=== PATIENT | male | born 1990 | race Caucasian/White ===

== ENCOUNTER 2021-10-29 16:40 | Observation (INO) ==
[2021-10-30] MEDS ORDERED: Naloxone 0.4 MG/ML INJ IVP PRN (01:42)
[2021-10-30] MEDS ORDERED: Acetaminophen 325 MG TABLET PO PRN (01:42)
[2021-10-30] MEDS ORDERED: Ondansetron 4 MG/2 ML VIAL IVP PRN (01:42)
[2021-10-30 05:09] LABS: Hematocrit 41.8 % (37.5-50.1); Hemoglobin 14.2 g/dL (12.9-16.9); Mean Corpuscular Hemoglobin 29.4 pg (28.0-33.3); Mean Corpuscular Volume 86.5 fL (83.0-100.0); Mean Platelet Volume 10.3 fL (9.4-12.4); Platelet Count 285 K/mcL (140-400); Red Blood Count 4.83 M/mcL (4.19-5.50); Red Cell Distribution Width 12.3 % (11.5-14.5); White Blood Count 9.8 K/mcL (4.3-11.1)
[2021-10-30 05:20] LABS: INR 1.2; Prothrombin Time 13.5 Seconds (9.4-12.1)
[2021-10-30 05:23] LABS: Activated Partial Thrombo Time 36.9 Seconds (26.0-36.0)
[2021-10-30 05:39] LABS: Estimated Average Glucose 100 mg/dl; Hemoglobin A1C 5.1 %
[2021-10-30 09:16] LABS: BUN/Creatinine Ratio 12 (6-26); Blood Urea Nitrogen 10 mg/dL (6-20); Calcium 8.1 mg/dL (8.6-10.3); Carbon Dioxide 24 mEq/L (23-29); Chloride 108 mEq/L (98-107); Chol/HDL Ratio 5.2 (0-4.9); Cholesterol 178 mg/dL (< 200); Glucose 99 mg/dL (70-105); HDL Cholesterol 34 mg/dL (40-59); LDL Cholesterol,Calculated 127 mg/dL (< 100); Magnesium 1.9 mg/dL (1.6-2.6); Osmolality,Calculated 285 (280-300); Potassium 3.5 mEq/L (3.5-5.1); Sodium 138 mEq/L (136-145); Triglycerides 86 mg/dL (< 150); Troponin I < 0.03 ng/mL (< 0.04); eGFR For African Americans > 60 (> 60); eGFR For Non-African Americans > 60 (> 60)
[2021-10-30 12:25] VITALS: TEMP 97.9
[2021-10-30 16:16] VITALS: BP 125/76; PULSE 87; O2SAT 95
== END 2021-10-30 17:02 | disposition home or self-care (01) ==
LOC: 3ANU → SUATTDRO 21:22
PROVIDERS: ADMIT Student in an Organized Health Care Education/Training Program; ATTEND Internal Medicine